=== PATIENT | male | born 1955 | race Two or more races ===

== ENCOUNTER 2021-08-01 09:14 | Emergency (ER) | payer MEDICARE, MEDICAID, SELFPAY ==
--- NOTE | ~2021-08-01 | XR_ITS ---
EXAMINATION: XR CHEST CLINICAL INFORMATION: Cough, recent travel. COMPARISON: None TECHNIQUE: Frontal view of the chest was obtained. FINDINGS: Overall decreased pulmonary markings are seen with mild biapical pleural thickening/scarring. The heart and mediastinal structures are unremarkable. Mild superior thoracic levoscoliosis is noted. XR/XR chest 1V IMPRESSION: Pulmonary findings appear chronic, possibly secondary to COPD. No acute cardiopulmonary process.
[2021-08-01 10:42] VITALS: BP 145/91; PULSE 83; RESP 18; TEMP 37.4; O2SAT 95
--- NOTE | 2021-08-01 11:58 | ED_ITS ---
HPI - URI/Sore Throat General Chief Complaint: Upper Respiratory Symptoms Stated Complaint: cough, chest wall pain, congestion Time Seen by Provider: 08/01/21 11:45 Source: patient and translator and interpreter Mode of arrival: ambulatory Limitations: language barrier History of Present Illness HPI Narrative: 66-year-old male here with complaints of nasal congestion, cough, body aches for 3 days. No fevers or chills. No chest pain or shortness of breath. Travel from [place] with July 16. Received Tee and Tee vaccine in December of 2020 Related Data Previous Rx's Medication Instructions Recorded albuterol sulfate 90 mcg/actuation 2 puff INHALATION Q4-6H PRN #6.7 g 08/01/21 aerosol inhaler benzonatate 100 mg capsule 100 mg PO TID PRN #10 cap 08/01/21 (Toña Coughlin) Allergies Allergy/AdvReac Type Severity Reaction Status Date / Time No Known Allergies Allergy Verified 08/01/21 11:45 Review of Systems Review of Systems: Yes all other systems are reviewed and are negative Constitutional: Constitutional: Reports no additional constitutional complaints, Reports body ache(s), Denies chills, Denies fever(s), Denies headache(s) and Denies weakness Eyes: Eyes: Reports no additional eye complaints and Denies change in vision ENT: Reports system reviewed and no additional complaints, except as documented, Denies dizziness, Denies headache(s), Reports nasal congestion, Denies nasal discharge and Denies neck pain Cardiovascular: Cardiovascular: Reports no additional cardiovascular complaints, Denies chest pain, Denies leg edema and Denies dyspnea Respiratory: Respiratory: Reports no additional respiratory complaints, Reports cough and Denies dyspnea Gastrointestinal: Gastrointestinal: Reports no additional gastrointestinal complaints, Denies abdominal pain, Denies diarrhea, Denies nausea and Denies vomiting Genitourinary: Genitourinary: Denies urinary incontinence Musculoskeletal: Musculoskeletal: Reports no additional musculoskeletal complaints, Denies back pain, Denies arthralgias, Denies joint swelling, Denies neck pain, Denies numbness and Denies tingling Integumentary/Breasts: Skin/Breast: Reports system reviewed and no additional complaints, except as docu and Denies rash Neurologic: Reports system reviewed and no additional complaints, except as documented, Denies Abnormal speech present, Denies dizziness, Denies headache(s), Denies numbness, Denies tingling and Denies weakness PMF Past Medical History Attestation statement: The following information was validated with the patient. Source: old records reviewed and nursing notes reviewed Medical History Age related osteoporosis Arthritis Social History Social History Advance Directives: No Physical Exam Vital Signs: Vital Signs: Last Vital Signs Temp 99.3 F 08/01/21 10:42 Pulse 83 08/01/21 10:42 Resp 18 08/01/21 10:42 BP 145/91 H 08/01/21 10:42 Pulse Ox 95 08/01/21 10:42 Body Mass Index 0.0 Const: General: cooperative, healthy appearing, comfortable and no acute distress Orientation/consciousness: patient oriented x3 Limitations: no limitations HENMT: Head: Yes normal to inspection Ears: hearing grossly normal bilaterally and TM's normal bilaterally General nose exam: Normal external nose present Face and sinus: Yes normal facial exam Mouth: Normal oral and palatal mucosa present Throat: Yes posterior oropharynx normal, Yes tonsils normal and Yes uvula midline Eyes: General: appearance normal, both eyes and all related structures Pupils: Equal, round and reactive pupils present Neck: Neck: Yes normal visual inspection, Yes full ROM, Yes no lymphadenopathy and Yes no meningeal signs Chest: Chest palpation & inspection: normal inspection of the chest Resp: Effort & Inspection: normal respiratory effort Auscultation: clear to auscultation bilaterally Cardio: Rate: regular rate Rhythm: regular rhythm Peripheral pulses: Peripheral pulses 2+ throughout GI: Inspection: Yes normal to inspection Palpation (GI): Soft to palpation and nontender Auscultation: normal bowel sounds Back/Spine/Pelvis: Thoracic/Lumbar Spine: thoracic and lumbar spine normal to inspection Skin: General skin exam: no rashes or lesions noted Neuro: General: patient oriented x3, no meningeal signs, no focal motor deficits and normal sensation to monofilament Cranial nerves: Yes Equal, round and reactive pupils present Cognition (Neuro): normal cognition Speech: No Abnormal speech present Gait exam (Neuro): Normal gait present Motor exam (neuro): 5/5 motor strength present throughout Extrem: General: Yes normal to inspection Course Course Course Narrative: URI symptoms for several days. . Exam is benign vitals are stable. Will check COVID screen and chest x-ray. 1300-COVID screen negative. Chest x-ray shows ?underlying COPD but no signs of infection. Patient was informed of this. Reviewed worrisome signs/symptoms with patient and when to return to ED. Comfortable with discharge home. MDM - URI/Sore Throat Medical Records Attestation: I reviewed the patient's medical records. Lab Data Attestation: I reviewed the patient's lab results. Labs: Lab Results 08/01/21 Range/Units 11:43 COVID-19 (AKASH) Negative (Negative) COVID-19 Clin Com See Note Imaging Data Chest x-ray: Attestation: I personally reviewed and interpreted this imaging study as follows: Radiologist's impression: ough, recent travel. COMPARISON: None TECHNIQUE: Frontal view of the chest was obtained. FINDINGS: Overall decreased pulmonary markings are seen with mild biapical pleural thickening/scarring. The heart and mediastinal structures are unremarkable. Mild superior thoracic levoscoliosis is noted. XR/XR chest 1V IMPRESSION: Pulmonary findings appear chronic, possibly secondary to COPD. No acute cardiopulmonary process. ? Discharge Plan Discharge Clinical Impression: Upper respiratory infection, COPD (chronic obstructive pulmonary disease) Patient Disposition: Home, Self-Care Instructions: Upper Respiratory Infection (ED), COPD (Chronic Obstructive Pulmonary Disease) (ED) Additional Instructions: Your x-ray shows COPD. This is a chronic finding to follow-up with a PCP with Covid test negative. Prescriptions: New benzonatate [Tessalon Perles] 100 mg capsule 100 mg PO TID PRN (Reason: cough) Qty: 10 RF: 0 albuterol sulfate 90 mcg/actuation HFA aerosol inhaler 2 puff inhalation Q4-6H PRN (Reason: shortness of breath or wheezing) Qty: 6.7 RF: 0 Referrals: Physician,None [Primary Care Provider] - 2 days Interventions: ED Discharge Assessment Last Done: 08/01/21 12:54 Discharge Date/Time: 08/01/21 12:55 Print Language: Maltese
[2021-08-01 12:04] LABS: COVID-19 Test Negative (Negative); IDNOW Serial# 08D9AD1C
== END 2021-08-01 12:55 | disposition home or self-care (01) ==
PROVIDERS: Emergency Provider Student in an Organized Health Care Education/Training Program
DX: J44.9 Chronic obstructive pulmonary disease, unspecified (principal); R05.9 Cough, unspecified; M79.10 Myalgia, unspecified site; Z20.822 Contact with and (suspected) exposure to COVID-19; Z79.899 Other long term (current) drug therapy
CPT/HCPCS: 36415; 71045; 87635; 99283